=== PATIENT | male | born 1990 | race Caucasian/White ===

== ENCOUNTER 2017-05-29 23:31 | Emergency (ER) | payer OTHER ==
[~2017-05-29] VITALS: Ht 172.7 cm; Wt 76.2 kg
[2017-05-30 00:28] VITALS: BP 147/90
[2017-05-30] MEDS ORDERED: AMOX/CLAVULANATE 875 MG TABLET ONE (01:49)
[2017-05-30] MEDS ORDERED: predniSONE 10 MG TABLET ONE (01:49)
[2017-05-30] MEDS ORDERED: predniSONE 20 MG TABLET ONE (01:49)
[2017-05-30] MEDS ORDERED: ZIPRASIDONE MESYLATE 20 MG/VIAL VIAL IM ONE (01:50)
[2017-05-30] MEDS ORDERED: BENZONATATE 100 MG CAPSULE PO PRN (02:00)
[2017-05-30] MEDS ORDERED: OXYMETAZOLINE HCL NASAL SPRAY 30 ML BOTTLE NS ONE (02:00)
[2017-05-30] MEDS ORDERED: predniSONE 20 MG TABLET PO ONE (02:00)
[2017-05-30] MEDS ORDERED: AMOX/CLAVULANATE 875 MG TABLET PO ONE (02:00)
== END 2017-05-30 01:57 | disposition home or self-care (01) ==
LOC: ER 23:36
DX: H66.93 Otitis media, unspecified, bilateral (principal); J32.9 Chronic sinusitis, unspecified
CPT/HCPCS: A4606; J3486; Z7610

== ENCOUNTER 2018-11-03 09:33 | Emergency (ER) | payer OTHER ==
[~2018-11-03] VITALS: Ht 172.7 cm; Wt 79.4 kg
--- NOTE | 2018-11-03 09:37 | NUR ---
Gatito oliveros in ED - 11/03/18 at 0942 by QUEENIE PT BIBRA FROM THE STREETS ACCOMPANIED BY PD TO ER BED 07. PER TAMIY
--- NOTE | 2018-11-03 09:37 | NUR ---
PT LEONEL FROM THE STREETS ACCOMPANIED BY PD. NOTED TO BE HOLDING A BROKEN GLASS TO HIS NECK. ABRASIONS TO NECK NOTED. PT STATES DEPRESSED. ADMITS TO ETOH AND DRUG USE LAST NIGHT. PLACED ON SUICIDE PRECAUTION. VSS. AWAITING MD HERNANDEZ.
--- NOTE | 2018-11-03 09:39 | NUR ---
DR ERIC AT BEDSIDE FOR EVAL.
--- NOTE | 2018-11-03 09:51 | NUR ---
STACY MATT CALLED FOR A SITTER,PLACED ON 5150 HOLD BY [employer] OFFICER
--- NOTE | 2018-11-03 09:53 | NUR ---
WELT ROUGHER AT BEDSIDE FOR BLOOD DRAW.
[2018-11-03 09:57] LABS: BASOPHILS % (AUTO) 0.4 % (0.0-2.0); HEMATOCRIT 46 % (39-51); HEMOGLOBIN 15.8 g/dL (13.5-17.5); LYMPHOCYTES # (AUTO) 1.1 /CMM (0.8-4.8); LYMPHOCYTES % (AUTO) 7.8 % (20.0-44.0); MEAN CORPUSCULAR HGB CONC 35 g/dl (31.0-36.0); MEAN CORPUSCULAR VOLUME 89 fL (80-96); MONOCYTES # (AUTO) 1.4 /CMM (0.1-1.30); MONOCYTES % (AUTO) 10.2 % (2.0-12.0); NEUTROPHILS # (AUTO) 11.2 /CMM (1.8-8.9); NEUTROPHILS % (AUTO) 81.6 % (43.0-81.0); PLATELET COUNT (AUTO) 246 /CMM (150-450); RED BLOOD CELL COUNT(AUTO) 5.14 MIL/uL (4.5-6.0); WHITE BLOOD COUNT (AUTO) 13.7 K/uL (4.3-11.0)
--- NOTE | 2018-11-03 10:00 | NUR ---
5150 HOLD WRITTEN BY .
[2018-11-03 10:14] LABS: ALANINE AMINOTRANSFERASE 337 U/L (12-78); ALBUMIN 3.9 g/dL (3.4-5.0); ALCOHOL, BLOOD < 3 mg/dL (0-0); ALKALINE PHOSPHATASE 112 U/L (46-116); ASPARTATE AMINOTRANSFERASE 144 U/L (15-37); BILIRUBIN,DIRECT 0.6 mg/dL (0.0-0.2); BILIRUBIN,TOTAL 1.4 mg/dL (0.2-1.0); CALCIUM, SERUM 7.9 mg/dL (8.5-10.1); CARBON DIOXIDE 26 mmol/L (21-32); CHLORIDE 102 mmol/L (98-107); CREATININE 0.9 mg/dL (0.6-1.3); GLUCOSE 127 mg/dL (74-106); POTASSIUM 3.4 mmol/L (3.5-5.1); SALICYLATE 1.8 mg/dL (2.8-20.0); SODIUM SERUM 139 mmol/L (136-145); TOTAL PROTEIN, SERUM 7.1 g/dL (6.4-8.2); UREA NITROGEN, BLOOD 20 mg/dL (7-18)
[2018-11-03 10:15] LABS: ACETAMINOPHEN < 2 ug/ml (10-30)
[2018-11-03 10:25] LABS: APPEARANCE,URINE Clear (CLEAR); BILIRUBIN,URINE SMALL (NEGATIVE); BLOOD, URINE Trace-intact Ery/uL (NEGATIVE); COLOR,URINE Dark (YELLOW); KETONES,URINE 80 (NEGATIVE); LEUKOCYTE ESTERASE ,URINE Negative (NEGATIVE); NITRITE, URINE Negative (NEGATIVE); PH,URINE 5.5 (5.0-8.0); PROTEIN,URINE 30 mg/dl (NEGATIVE); UGLUCOSE Negative (NEGATIVE)
--- NOTE | 2018-11-03 10:29 | NUR ---
CALL BACK FROM [facility]
[2018-11-03 10:38] LABS: BACTERIA,URINE Rare /HPF (None Seen); SQUAMOUS EPITHELIAL CELL,UR Few /HPF (None Seen); WBC,URINE 0-2 /HPF (0-3)
[2018-11-03] MEDS ORDERED: ACETAMINOPHEN ES 500 MG TABLET ONE (11:09)
[2018-11-03] MEDS ORDERED: ACETAMINOPHEN 325 MG TABLET PO ONE (11:30)
--- NOTE | 2018-11-03 12:10 | NUR ---
AYESHA RN AT BEDSIDE FOR PSYCH EVAL.
--- NOTE | 2018-11-03 13:06 | NUR ---
RADIOLOGY AT BEDSIDE FOR R KNEE XRAY.
--- NOTE | 2018-11-03 13:46 | NUR ---
PT WAS SEEN BY AYESHA MATT, MEDICALLY CLEARED BY DR ERIC FOR DISCHARGE. PT WILL GO TO [facility] AND WILL BE PROVIDED W/ TRANSPORTATION FAIR. PT IS AAO, DENIES SI/HI AT THIS TIME. VSS.
[2018-11-03 14:15] VITALS: BP 142/88
== END 2018-11-03 14:16 | disposition home or self-care (01) ==
LOC: ER 09:35
DX: F31.9 Bipolar disorder, unspecified (principal); S89.81XA Other specified injuries of right lower leg, initial encounter; F19.10 Other psychoactive substance abuse, uncomplicated; F12.90 Cannabis use, unspecified, uncomplicated; X58.XXXA Exposure to other specified factors, initial encounter; Y93.89 Activity, other specified; Y92.89 Other specified places as the place of occurrence of the external cause; Y99.8 Other external cause status
CPT/HCPCS: 36415; 73564; 80048; 80076; 80305; 80329; 81001; 85025; 99285; A4606; G0480 ×2; Z7610; 81000-TC

== ENCOUNTER 2018-11-03 14:49 | Emergency (ER) | payer OTHER ==
[~2018-11-03] VITALS: Ht 172.7 cm; Wt 79.8 kg
[2018-11-03 14:55] VITALS: BP 126/65
== END 2018-11-03 15:29 | disposition home or self-care (01) ==
LOC: ER 14:52
DX: S83.8X1A Sprain of other specified parts of right knee, initial encounter (principal); F31.9 Bipolar disorder, unspecified; F12.90 Cannabis use, unspecified, uncomplicated; W20.8XXA Other cause of strike by thrown, projected or falling object, initial encounter; Y93.89 Activity, other specified; Y92.89 Other specified places as the place of occurrence of the external cause; Y99.8 Other external cause status
CPT/HCPCS: 99282; A4606; Z7610

== ENCOUNTER 2018-11-20 10:53 | Emergency (ER) | payer OTHER ==
[~2018-11-20] VITALS: Ht 172.7 cm; Wt 74.8 kg
[2018-11-20 10:53] VITALS: BP 152/106
--- NOTE | 2018-11-20 10:53 | NUR ---
PT BIBSELF FROM HOME, FOR GENITAL SWELLING, YELLOWISH DISCHARGE X 2 WEEKS. PT AAOX4, RESPIARTIONS EVEN AND UNLABORED, NO SOB, NAD NOTED, DENIES PAIN/DISCOMFORT, VSS, PENDING ER PROVIDER EVAL
[2018-11-20] MEDS ORDERED: ACETAMINOPHEN ES 500 MG TABLET ONE (11:26)
[2018-11-20] MEDS ORDERED: ACETAMINOPHEN 325 MG TABLET PO ONE (11:30)
[2018-11-20 11:35] LABS: APPEARANCE,URINE Cloudy (CLEAR); BILIRUBIN,URINE SMALL (NEGATIVE); BLOOD, URINE Small Ery/uL (NEGATIVE); KETONES,URINE Trace (NEGATIVE); LEUKOCYTE ESTERASE ,URINE Moderate (NEGATIVE); NITRITE, URINE Negative (NEGATIVE); PROTEIN,URINE 30 mg/dl (NEGATIVE); UGLUCOSE Negative (NEGATIVE); UROBILINOGEN,URINE >=8.0 EU/dL (0.2)
[2018-11-20 11:36] LABS: COLOR,URINE Dark Yellow (YELLOW)
[2018-11-20 11:45] LABS: BACTERIA,URINE Few /HPF (None Seen); SQUAMOUS EPITHELIAL CELL,UR Few /HPF (None Seen); WBC,URINE TOO NUMEROUS TO COUN /HPF (0-3)
[2018-11-20] MEDS ORDERED: CEFTRIAXONE 500 MG VIAL ONE (11:57)
[2018-11-20] MEDS ORDERED: LIDOCAINE /MPF 1% VIAL 5 ML VIAL ONE (11:57)
[2018-11-20] MEDS ORDERED: AZITHROMYCIN 250 MG TABLET ONE (11:58)
[2018-11-20] MEDS ORDERED: CEFTRIAXONE 500 MG VIAL IM ONE (12:00)
[2018-11-20] MEDS ORDERED: AZITHROMYCIN 250 MG TABLET PO ONE (12:00)
--- NOTE | 2018-11-20 12:37 | NUR ---
Patient discharged to home in stable condition. Written and verbal after care instructions given. Patient verbalizes understanding of instruction.
== END 2018-11-20 12:40 | disposition home or self-care (01) ==
LOC: ER 10:56
DX: N47.6 Balanoposthitis (principal); A64 Unspecified sexually transmitted disease; F31.9 Bipolar disorder, unspecified; F12.90 Cannabis use, unspecified, uncomplicated
CPT/HCPCS: 81000-TC; 87086-TC; 87491; 87591; J0696; J3490

== ENCOUNTER 2019-05-05 10:57 | Emergency (ER) | payer OTHER ==
[~2019-05-05] VITALS: Ht 177.8 cm; Wt 77.1 kg
[2019-05-05] MEDS ORDERED: LORAZEPAM INJ 2 MG/ML VIAL ONE (11:02)
--- NOTE | 2019-05-05 11:10 | NUR ---
[id number] W PD, PER PD "BEING TRANSPORTED TO [facility] [place] AND BEGAN TO BEAT HEAD AT THE BACK OF POLICE CAR", SI "I DON'T WANT TO LIVE ANYMORE". PT HAS ABRASIONS ON FOREHEAD. ASKING FOR PSYCH MEDS. ADMITS TO SUICIDE ATTEMPTS IN THE PAST. PT ASKING FOR FOOD. IN CUSTODY, READY FOR EVAL.
--- NOTE | 2019-05-05 11:34 | NUR ---
ATIVAN 1MG ADMINISTERED ORDERED BY DR. FREDERICK TO R DELTOID.
--- NOTE | 2019-05-05 11:35 | NUR ---
Patient discharged to [facility] in stable condition. Written and verbal after care instructions given. Patient verbalizes understanding of instruction.
[2019-05-05 11:42] VITALS: BP 140/86
== END 2019-05-05 11:42 ==
LOC: ER 10:57
DX: S00.03XA Contusion of scalp, initial encounter (principal); S09.8XXA Other specified injuries of head, initial encounter; R45.1 Restlessness and agitation; R56.9 Unspecified convulsions; F31.9 Bipolar disorder, unspecified; F10.10 Alcohol abuse, uncomplicated; F17.200 Nicotine dependence, unspecified, uncomplicated; F12.10 Cannabis abuse, uncomplicated; F15.10 Other stimulant abuse, uncomplicated; Y90.9 Presence of alcohol in blood, level not specified
CPT/HCPCS: 99283; J2060

== ENCOUNTER 2019-07-21 16:25 | Emergency (ER) | payer OTHER ==
[~2019-07-21] VITALS: Ht 172.7 cm; Wt 74.8 kg
[2019-07-21 16:27] VITALS: BP 137/85
== END 2019-07-21 17:33 ==
LOC: ER 16:28
DX: F19.10 Other psychoactive substance abuse, uncomplicated (principal); F32.9 Major depressive disorder, single episode, unspecified; F12.90 Cannabis use, unspecified, uncomplicated

== ENCOUNTER 2019-10-19 10:02 | Emergency (ER) | payer OTHER ==
[~2019-10-19] VITALS: Ht 170.2 cm; Wt 79.4 kg
[2019-10-19] MEDS ORDERED: IV NS 0.9% 1,000 ML BAG IV ONE (10:30)
[2019-10-19 10:46] LABS: BASOPHILS % (AUTO) 0.1 % (0.0-2.0); HEMATOCRIT 42 % (39-51); HEMOGLOBIN 14.2 g/dL (13.5-17.5); LYMPHOCYTES # (AUTO) 0.6 /CMM (0.8-4.8); LYMPHOCYTES % (AUTO) 5.2 % (20.0-44.0); MEAN CORPUSCULAR HGB CONC 34 g/dl (31.0-36.0); MEAN CORPUSCULAR VOLUME 89 fL (80-96); MONOCYTES # (AUTO) 0.5 /CMM (0.1-1.30); MONOCYTES % (AUTO) 4.3 % (2.0-12.0); NEUTROPHILS # (AUTO) 11.3 /CMM (1.8-8.9); NEUTROPHILS % (AUTO) 90.4 % (43.0-81.0); PLATELET COUNT (AUTO) 206 /CMM (150-450); WHITE BLOOD COUNT (AUTO) 12.5 K/uL (4.3-11.0)
--- NOTE | 2019-10-19 10:49 | NUR ---
Patient lethargic but arousable to pain stimulus
--- NOTE | 2019-10-19 10:52 | NUR ---
Prep for in and out by Karyna MATT observed sterile technique urine obtained and send to lab
[2019-10-19 11:01] LABS: CALCIUM, SERUM 8.1 mg/dL (8.5-10.1); CARBON DIOXIDE 24 mmol/L (21-32); CHLORIDE 100 mmol/L (98-107); CREATININE 1.3 mg/dL (0.6-1.3); GLUCOSE 81 mg/dL (74-106); POTASSIUM 3.6 mmol/L (3.5-5.1); SODIUM SERUM 137 mmol/L (136-145); UREA NITROGEN, BLOOD 27 mg/dL (7-18)
[2019-10-19 11:06] LABS: ALANINE AMINOTRANSFERASE 85 U/L (12-78); ALBUMIN 3.9 g/dL (3.4-5.0); ALCOHOL, BLOOD < 3 mg/dL (0-0); ALKALINE PHOSPHATASE 92 U/L (46-116); ASPARTATE AMINOTRANSFERASE 138 U/L (15-37); BILIRUBIN,DIRECT 0.5 mg/dL (0.0-0.2); BILIRUBIN,TOTAL 1.4 mg/dL (0.2-1.0); TOTAL PROTEIN, SERUM 7.3 g/dL (6.4-8.2)
[2019-10-19 11:07] LABS: APPEARANCE,URINE Clear (CLEAR); BILIRUBIN,URINE Negative (NEGATIVE); BLOOD, URINE Negative Ery/uL (NEGATIVE); COLOR,URINE Yellow (YELLOW); KETONES,URINE 40 (NEGATIVE); LEUKOCYTE ESTERASE ,URINE Negative (NEGATIVE); NITRITE, URINE Negative (NEGATIVE); PH,URINE 5.5 (5.0-8.0); PROTEIN,URINE Negative (NEGATIVE); UGLUCOSE Negative (NEGATIVE); UROBILINOGEN,URINE 0.2 EU/dL (0.2)
[2019-10-19 11:09] LABS: ACETAMINOPHEN < 2 ug/ml (10-30)
--- NOTE | 2019-10-19 13:23 | NUR ---
Patient moaning lethargic non follow command Dr. Charles @ bedside
[2019-10-19] MEDS ORDERED: LORAZEPAM INJ 2 MG/ML VIAL IV ONE (13:30)
[2019-10-19] MEDS ORDERED: OLANZAPINE 10 MG VIAL IM ONE ×2 (13:30→13:46)
[2019-10-19] MEDS ORDERED: LORAZEPAM INJ 2 MG/ML VIAL ONE (13:45)
--- NOTE | 2019-10-19 13:57 | NUR ---
Patient moaning trying getting out of bed and back eyes close ,patient not following commands medication given continue to monitor
--- NOTE | 2019-10-19 15:44 | NUR ---
Patient eys close Remain lethargic siezure precaution padded side rails ,vitals taken and filed suctioned @ bedside ,call light no family noted continue to monitor
--- NOTE | 2019-10-19 19:08 | NUR ---
Transfer report to [facility]
--- NOTE | 2019-10-19 23:07 | NUR ---
Patient is resting comfortably in bed with eyes closed. Easily aroused. VSS
[2019-10-20] MEDS ORDERED: FLUCONAZOLE (100 MG) 100 MG TABLET ONE (03:45)
[2019-10-20] MEDS ORDERED: FLUCONAZOLE (100 MG) 100 MG TABLET PO ONE (04:00)
--- NOTE | 2019-10-20 04:21 | NUR ---
Patient is resting comfortably in bed with eyes closed. Easily aroused. VSS. SITTER AT BEDSIDE
[2019-10-20 05:55] VITALS: BP 123/83
== END 2019-10-20 05:56 | disposition home or self-care (01) ==
LOC: ER 10:04
DX: F15.10 Other stimulant abuse, uncomplicated (principal); R74.0 Nonspecific elevation of levels of transaminase and lactic acid dehydrogenase [LDH]; F32.9 Major depressive disorder, single episode, unspecified; F17.200 Nicotine dependence, unspecified, uncomplicated; R51 Headache
CPT/HCPCS: 36415; 70450; 80048; 80076; 80305; 80307; 80329; 81001; 82962; 85025; 93005; 96372; 96374; 99284; G0480; J2060; J3490; J7030; 81000-TC

== ENCOUNTER 2021-02-09 15:35 | Emergency (ER) | payer OTHER ==
[~2021-02-09] VITALS: Ht 175.3 cm; Wt 72.6 kg
--- NOTE | 2021-02-09 15:55 | NUR ---
NOT READY TO GO TO ER BED ASSIGHNED, WENT OUT TO SMOKE
--- NOTE | 2021-02-09 16:00 | NUR ---
THE PATIENT IS IN ER BED #13 WITH C/O FEELING SICK X 1 WEEK, "I THINK I"M HAVING FOOD POISONING". THE PATIENT IS ALERT AND ORIENTED X4. DENIES PAIN. IN ROOM AIR AND DENIES SOB. RESPIRATION REGULAR AND UNLABORED. THE PATIENT IS PROVIDED WITH A WARM BLANKET. WILL CONTINUE TO MONITOR THE PATIENT.
[2021-02-09] MEDS ORDERED: CEPHALEXIN MONOHYDRATE 500 MG CAPSULE PO ONE ×2 (18:00→18:21)
[2021-02-09] MEDS ORDERED: CEPH500T PO (18:03)
--- NOTE | 2021-02-09 18:22 | NUR ---
Patient does not wish to proceed with medical care recommended by Anabel Zayas PA-C. Patient given information related to possible complications, up to and including , which could occur as a result of leaving the hospital at this time. Patient verbalizes understanding of risks involved due to leaving against medical advice. Patient has signed AMA form.
[2021-02-09 18:25] VITALS: BP 138/82
== END 2021-02-09 18:25 | disposition home or self-care (01) ==
LOC: ER 15:42
DX: S61.411A Laceration without foreign body of right hand, initial encounter (principal); R10.9 Unspecified abdominal pain; G40.909 Epilepsy, unspecified, not intractable, without status epilepticus; F32.9 Major depressive disorder, single episode, unspecified; F19.10 Other psychoactive substance abuse, uncomplicated; F12.90 Cannabis use, unspecified, uncomplicated; W25.XXXA Contact with sharp glass, initial encounter; Y93.89 Activity, other specified; Y92.89 Other specified places as the place of occurrence of the external cause; Y99.8 Other external cause status
CPT/HCPCS: 73130-TC; L3763

== ENCOUNTER 2021-02-16 16:34 | Emergency (ER) | payer OTHER ==
[~2021-02-16] VITALS: Ht 175.3 cm; Wt 70.3 kg
[~2021-02-16 16:34] MED LIST: CEPH500T PO
--- NOTE | 2021-02-16 17:00 | NUR ---
The patient bibs for c/o feeling weak x 1 week. No deficiency noted. Denies pain. In room air and denies sob. Respiration regular and unlabored. Will continue to monitor the patient.
--- NOTE | 2021-02-16 17:32 | NUR ---
SEEN AND EXAMINED BY ALEX HAAS
--- NOTE | 2021-02-16 17:45 | NUR ---
IV LINE ESTABLISHED BLOOD DRAWN AND SENT TO LAB.
[2021-02-16] MEDS ORDERED: ONDANSETRON HCL/PF 4 MG/2 ML VIAL ONE (17:46)
[2021-02-16 17:50] LABS: BASOPHILS % (AUTO) 0.5 % (0.0-2.0); EOSINOPHILS % (AUTO) 1.2 % (0.0-6.0); HEMATOCRIT 47 % (39-51); LYMPHOCYTES # (AUTO) 1.4 /CMM (0.8-4.8); LYMPHOCYTES % (AUTO) 33.2 % (20.0-44.0); MEAN CORPUSCULAR HGB CONC 34 g/dl (31.0-36.0); MEAN CORPUSCULAR VOLUME 90 fL (80-96); MONOCYTES # (AUTO) 0.4 /CMM (0.1-1.30); MONOCYTES % (AUTO) 8.7 % (2.0-12.0); NEUTROPHILS # (AUTO) 2.4 /CMM (1.8-8.9); NEUTROPHILS % (AUTO) 56.4 % (43.0-81.0); PLATELET COUNT (AUTO) 292 /CMM (150-450); RED BLOOD CELL COUNT(AUTO) 5.21 MIL/uL (4.5-6.0); WHITE BLOOD COUNT (AUTO) 4.3 K/uL (4.3-11.0)
--- NOTE | 2021-02-16 17:51 | NUR ---
URINAL GIVEN BUT UNABLE TO PROVIDE URINE SPECIMEN THIS TIME.
[2021-02-16 17:58] LABS: CALCIUM, SERUM 9.2 mg/dL (8.5-10.1); CREATININE 0.8 mg/dL (0.6-1.3); POTASSIUM 3.7 mmol/L (3.5-5.1)
[2021-02-16] MEDS ORDERED: IV NS 0.9% 1,000 ML BAG IV ONE (18:00)
[2021-02-16] MEDS ORDERED: ONDANSETRON HCL/PF 4 MG/2 ML VIAL IV ONE (18:00)
[2021-02-16 18:04] LABS: BILIRUBIN,DIRECT 0.2 mg/dL (0.0-0.2); BILIRUBIN,TOTAL 0.6 mg/dL (0.2-1.0); TOTAL PROTEIN, SERUM 7.7 g/dL (6.4-8.2)
[2021-02-16 18:39] VITALS: BP 135/78
--- NOTE | 2021-02-16 18:39 | NUR ---
IV removed. Catheter intact and site benign. Pressure and 4x4 applied to site. No bleeding noted. Patient discharged to home in stable condition. Written and verbal after care instructions given. Patient verbalizes understanding of instruction.
== END 2021-02-16 18:40 | disposition home or self-care (01) ==
LOC: ER 16:37
DX: R53.1 Weakness (principal); R10.84 Generalized abdominal pain; R74.01 Elevation of levels of liver transaminase levels; F32.9 Major depressive disorder, single episode, unspecified; F12.90 Cannabis use, unspecified, uncomplicated
CPT/HCPCS: 36415; 80048; 80076; 82550; 83690; 85025; 96360; 99283; J7030; J2405

== ENCOUNTER 2022-01-01 11:00 | Emergency (ER) | payer OTHER ==
[~2022-01-01] VITALS: Ht 170.2 cm; Wt 79.4 kg
--- NOTE | 2022-01-01 11:18 | NUR ---
BIB SELF STATES "I just got out of alf, have NOt eaten, feel sick, also have a toothache". TO ER 14, CHANGED TO HOSP GOWN. HOOKED TO MONITOR. AWAITING MD HERNANDEZ
--- NOTE | 2022-01-01 11:19 | NUR ---
DR NUNEZ AT BEDSIDE
[2022-01-01 12:04] LABS: BASOPHILS % (AUTO) 0.1 % (0.0-2.0); EOSINOPHILS % (AUTO) 0.1 % (0.0-6.0); HEMATOCRIT 49 % (39-51); HEMOGLOBIN 16.7 g/dL (13.5-17.5); LYMPHOCYTES # (AUTO) 1.5 K/uL (0.8-4.8); LYMPHOCYTES % (AUTO) 14.1 % (20.0-44.0); MEAN CORPUSCULAR HGB CONC 34 g/dl (31.0-36.0); MEAN CORPUSCULAR VOLUME 89 fL (80-96); MONOCYTES % (AUTO) 9.7 % (2.0-12.0); NEUTROPHILS # (AUTO) 8.2 K/uL (1.8-8.9); PLATELET COUNT (AUTO) 276 K/uL (150-450); RED BLOOD CELL COUNT(AUTO) 5.45 MIL/uL (4.5-6.0); WHITE BLOOD COUNT (AUTO) 10.8 K/uL (4.3-11.0)
[2022-01-01 12:32] LABS: CREATININE 0.9 mg/dL (0.6-1.3); POTASSIUM 3.6 mmol/L (3.5-5.1)
[2022-01-01 12:38] LABS: ALBUMIN 4.6 g/dL (3.4-5.0); BILIRUBIN,TOTAL 1.1 mg/dL (0.2-1.0); TOTAL PROTEIN, SERUM 8.6 g/dL (6.4-8.2)
--- NOTE | 2022-01-01 13:20 | NUR ---
Patient discharged to home in stable condition. Written and verbal after care instructions given. Patient verbalizes understanding of instruction.
[2022-01-01 13:31] VITALS: BP 132/66
== END 2022-01-01 13:30 | disposition home or self-care (01) ==
LOC: ER 11:02
DX: F29 Unspecified psychosis not due to a substance or known physiological condition (principal); F32.A Depression, unspecified; F12.90 Cannabis use, unspecified, uncomplicated
CPT/HCPCS: 36415; 80053-TC; 85025-TC

== ENCOUNTER 2022-01-18 17:46 | Emergency (ER) | payer OTHER ==
[~2022-01-18] VITALS: Ht 170.2 cm; Wt 78.5 kg
--- NOTE | 2022-01-18 19:05 | NUR ---
PT BIBRA C/O SI WITHOUT PLAN. PT AAOX4 BREATHING EVENLY AND UNLABORED. PT ATTACHED TO MONITOR AND POX. PT ADMITS TO USING METH YESTERDAY. PT GIVEN BLANKET AND CALL LIGHT WITHIN REACH
[2022-01-18 19:18] LABS: ALANINE AMINOTRANSFERASE 59 U/L (12-78); ALCOHOL, BLOOD < 3 mg/dL (0-0); ALKALINE PHOSPHATASE 85 U/L (46-116); ASPARTATE AMINOTRANSFERASE 107 U/L (15-37); BILIRUBIN,DIRECT 0.2 mg/dL (0.0-0.2); BILIRUBIN,TOTAL 0.5 mg/dL (0.2-1.0); CALCIUM, SERUM 8.2 mg/dL (8.5-10.1); CARBON DIOXIDE 30 mmol/L (21-32); CREATININE 0.6 mg/dL (0.6-1.3); GLUCOSE 106 mg/dL (74-106); TOTAL PROTEIN, SERUM 6.9 g/dL (6.4-8.2); UREA NITROGEN, BLOOD 11 mg/dL (7-18)
[2022-01-18 19:23] LABS: CHLORIDE 100 mmol/L (98-107); POTASSIUM 3.2 mmol/L (3.5-5.1); SODIUM SERUM 135 mmol/L (136-145)
[2022-01-18 20:06] LABS: ACETAMINOPHEN < 1 ug/ml (10-30)
[2022-01-18 20:20] LABS: BASOPHILS % (AUTO) 0.4 % (0.0-2.0); HEMATOCRIT 41 % (39-51); HEMOGLOBIN 13.9 g/dL (13.5-17.5); LYMPHOCYTES # (AUTO) 0.9 K/uL (0.8-4.8); MEAN CORPUSCULAR HGB CONC 34 g/dl (31.0-36.0); MEAN CORPUSCULAR VOLUME 89 fL (80-96); MONOCYTES # (AUTO) 0.8 K/uL (0.1-1.30); MONOCYTES % (AUTO) 11.7 % (2.0-12.0); NEUTROPHILS # (AUTO) 4.9 K/uL (1.8-8.9); NEUTROPHILS % (AUTO) 72.9 % (43.0-81.0); PLATELET COUNT (AUTO) 390 K/uL (150-450); RED BLOOD CELL COUNT(AUTO) 4.58 MIL/uL (4.5-6.0); WHITE BLOOD COUNT (AUTO) 6.7 K/uL (4.3-11.0)
[2022-01-18] MEDS ORDERED: POTASSIUM CHLORIDE 20 MEQ TAB.PRT.SR PO ONE ×2 (22:00→22:26)
[2022-01-18] MEDS ORDERED: CEPHALEXIN MONOHYDRATE 500 MG CAPSULE PO ONE ×2 (22:00→22:26)
--- NOTE | 2022-01-18 22:11 | NUR ---
URINE COLLECTED AND SENT TO LAB
[2022-01-18] MEDS ORDERED: CEPH500C2 PO (22:27)
[2022-01-18 23:00] VITALS: BP 133/70
[2022-01-18 23:10] LABS: BILIRUBIN,URINE NEGATIVE (NEGATIVE); COLOR,URINE YELLOW (YELLOW); LEUKOCYTE ESTERASE ,URINE NEGATIVE (NEGATIVE); NITRITE, URINE NEGATIVE (NEGATIVE); PROTEIN,URINE NEGATIVE (NEGATIVE); UGLUCOSE NEGATIVE (NEGATIVE); UROBILINOGEN,URINE >=8.0 EU/dL (0.2)
--- NOTE | 2022-01-19 00:48 | NUR ---
CLINICALS FAXED TO [facility]
--- NOTE | 2022-01-19 04:53 | NUR ---
PT ACCEPTED AT [facility] UNDER THE CARE OF DR. MARROQUIN.CALL [phone] FOR REPORT. SEND PT AT 11AM PER FACILITY REQUEST.
--- NOTE | 2022-01-19 09:02 | NUR ---
TRANSPORT ETA IS 45 MINS. PER JOHN TELLEZ.
--- NOTE | 2022-01-19 09:38 | NUR ---
TRANSPORTED TO [facility]IA [facility]. STABLE CONDITION.
== END 2022-01-19 09:39 ==
LOC: ER 17:47
DX: R45.851 Suicidal ideations (principal); F19.10 Other psychoactive substance abuse, uncomplicated; L01.00 Impetigo, unspecified; L03.012 Cellulitis of left finger; E87.6 Hypokalemia; G40.909 Epilepsy, unspecified, not intractable, without status epilepticus; Z72.0 Tobacco use; Z59.00 Homelessness unspecified; F31.9 Bipolar disorder, unspecified; Z86.19 Personal history of other infectious and parasitic diseases
CPT/HCPCS: 36415; 80048; 80076; 80143; 80307; 80320; 81003; 85025; 87426; 99285; 99406; C9803; G0480

== ENCOUNTER 2022-03-23 03:08 | Emergency (ER) | payer OTHER ==
[~2022-03-23] VITALS: Ht 172.7 cm; Wt 63.5 kg
[~2022-03-23 03:08] MED LIST changes: +CEPH500C2 PO
[2022-03-23 06:08] VITALS: BP 131/85
== END 2022-03-23 06:42 | disposition home or self-care (01) ==
LOC: ER 03:12
DX: S60.512A Abrasion of left hand, initial encounter (principal); S60.511A Abrasion of right hand, initial encounter; S80.812A Abrasion, left lower leg, initial encounter; S80.811A Abrasion, right lower leg, initial encounter; F15.159 Other stimulant abuse with stimulant-induced psychotic disorder, unspecified; F32.A Depression, unspecified; F17.200 Nicotine dependence, unspecified, uncomplicated; Z86.69 Personal history of other diseases of the nervous system and sense organs; Z79.899 Other long term (current) drug therapy; X58.XXXA Exposure to other specified factors, initial encounter; Y93.89 Activity, other specified; Y92.89 Other specified places as the place of occurrence of the external cause; Y99.8 Other external cause status

== ENCOUNTER 2023-06-10 04:57 | Emergency (ER) | payer OTHER | END 2023-06-10 06:10 | disposition left against medical advice (07) | LOC: ER 05:01 | DX: Z53.21 Procedure and treatment not carried out due to patient leaving prior to being seen by health care provider (principal) ==

== ENCOUNTER 2023-09-06 21:47 | Emergency (ER) | payer OTHER ==
[~2023-09-06] VITALS: Ht 175.3 cm; Wt 72.6 kg
[2023-09-06 22:45] VITALS: BP 158/109; TEMP 98.7; O2SAT 97
== END 2023-09-06 22:56 | disposition home or self-care (01) ==
LOC: ER 21:54
DX: R04.0 Epistaxis (principal); F31.9 Bipolar disorder, unspecified; F17.200 Nicotine dependence, unspecified, uncomplicated; Z79.899 Other long term (current) drug therapy; Z59.00 Homelessness unspecified

== ENCOUNTER 2024-05-11 01:28 | Emergency (ER) | payer OTHER ==
[~2024-05-11] VITALS: Ht 175.3 cm; Wt 74.8 kg
[2024-05-11] MEDS ORDERED: KETOROLAC TROMETHAMINE INJ 30 MG/ML VIAL ONE (03:06)
[2024-05-11] MEDS: KETOROLAC TROMETHAMINE INJ 60 MG/2 ML VIAL IM ONE (03:10)
[2024-05-11 05:05] VITALS: BP 116/69; TEMP 97.7; O2SAT 98
== END 2024-05-11 05:06 | disposition home or self-care (01) ==
LOC: ER 01:30
DX: M54.50 Low back pain, unspecified (principal); R56.9 Unspecified convulsions; F31.9 Bipolar disorder, unspecified; F12.10 Cannabis abuse, uncomplicated; F17.200 Nicotine dependence, unspecified, uncomplicated; Z59.00 Homelessness unspecified
CPT/HCPCS: 99283; 96372; J1885

== ENCOUNTER 2024-10-23 07:42 | Emergency (ER) | payer OTHER ==
[~2024-10-23] VITALS: Ht 167.6 cm; Wt 72.6 kg
[2024-10-23 07:53] VITALS: BP 116/82; TEMP 97.7
[2024-10-23] MEDS ORDERED: IBUP-1957 PO (07:59)
[2024-10-23 08:01] VITALS: O2SAT 97
== END 2024-10-23 08:02 | disposition home or self-care (01) ==
LOC: ER 07:55
DX: B34.9 Viral infection, unspecified (principal); M79.10 Myalgia, unspecified site; M79.673 Pain in unspecified foot; M79.676 Pain in unspecified toe(s); R05.9 Cough, unspecified; F12.90 Cannabis use, unspecified, uncomplicated; F17.200 Nicotine dependence, unspecified, uncomplicated; F32.A Depression, unspecified; Z59.00 Homelessness unspecified; Z79.1 Long term (current) use of non-steroidal anti-inflammatories (NSAID); Z86.69 Personal history of other diseases of the nervous system and sense organs

== ENCOUNTER 2025-05-14 23:24 | Emergency (ER) | payer OTHER ==
[~2025-05-14 23:24] MED LIST changes: +IBUP-1957 PO
== END 2025-05-15 01:16 | disposition left against medical advice (07) ==
LOC: ER 23:36
DX: S99.829A Other specified injuries of unspecified foot, initial encounter (principal); Z53.21 Procedure and treatment not carried out due to patient leaving prior to being seen by health care provider; X58.XXXA Exposure to other specified factors, initial encounter; Y93.89 Activity, other specified; Y92.89 Other specified places as the place of occurrence of the external cause; Y99.8 Other external cause status
CPT/HCPCS: A6403